=== PATIENT | female | born 1960 | race Caucasian/White ===

== ENCOUNTER 2017-08-10 14:00 | Observation (INO) | payer MEDICARE ==
[~2017-08-10] VITALS: Ht 157.5 cm; Wt 84.4 kg
[2017-08-10 14:41] LABS: CLARITY,URINE SLIGHTLY CLOUDY (Clear); COLOR,URINE YELLOW (Yellow); GLUCOSE, URINE NEGATIVE (Neg); KETONES,URINE TRACE mg/dl (Neg); LEUKOCYTE ESTERASE ,URINE SMALL (Neg); NITRITES, URINE NEGATIVE (Neg); OCCULT BLOOD,URINE LARGE (Neg); PH,URINE 5.5 (4.8-8.0); PROTEIN,URINE TRACE mg/dl (Neg); UROBILINOGEN,URINE 0.2 E.U/dL (0.2-1.0)
[2017-08-10 14:42] LABS: BASOPHILS % (AUTO) 0.1 % (0-1); EOSINOPHILS # (AUTO) 0.3 X10'3 (0-0.9); EOSINOPHILS % (AUTO) 2.3 % (0-6); HEMATOCRIT 43.8 % (35.0-45.0); HEMOGLOBIN 14.8 g/dl (12.0-16.0); LYMPHOCYTES # (AUTO) 2.9 X10'3 (1.1-4.8); LYMPHOCYTES % (AUTO) 19.6 % (21-51); MEAN CORPUSCULAR HEMOGLOBIN 30.6 PG (27.0-31.0); MEAN CORPUSCULAR HGB CONC 33.8 % (33.0-36.5); MEAN CORPUSCULAR VOLUME 90.5 FL (78-98); MEAN PLATELET VOLUME 8.2 FL (7.4-10.4); MONOCYTES % (AUTO) 6.4 % (2-12); NEUTROPHILS # (AUTO) 10.7 X10'3 (1.8-7.7); NEUTROPHILS % (AUTO) 71.6 % (42-75); PLATELET COUNT 284 X10'3 (140-440); RED BLOOD COUNT 4.84 X10'6 (4.20-5.60); RED CELL DISTRIBUTION WIDTH 14.9 % (11.5-14.5)
[2017-08-10 14:43] LABS: UA COLLECTION TYPE CLN CATCH MIDSTREAM
[2017-08-10 14:51] LABS: PROTHROMBIN TIME 10.5 SECONDS (9.0-12.0)
[2017-08-10 14:53] LABS: MUCUS STRANDS MODERATE /LPF (Neg); SQUAMOUS EPITHELIAL CELL,UR MODERATE /LPF (FEW)
[2017-08-10 14:54] LABS: BACTERIA,URINE 2+ /HPF (Neg)
[2017-08-10 14:56] LABS: ALANINE AMINOTRANSFERASE 36 U/L (12-78); ALBUMIN 3.5 G/DL (3.4-5.0); ALBUMIN/GLOBULIN RATIO 0.8 (1.1-1.5); ALKALINE PHOSPHATASE 87 IU/L (46-116); ANION GAP 8 (8-16); ASPARTATE AMINO TRANSFERASE 22 U/L (10-37); BILIRUBIN,TOTAL 0.4 MG/DL (0.1-1.0); BLOOD UREA NITROGEN 16 MG/DL (7-18); BUN/CREATININE RATIO 16.2 (6.6-38.0); CALCIUM 9.4 MG/DL (8.5-10.1); CHLORIDE 103 MMOL/L (99-107); CREATININE 0.99 MG/DL (0.40-0.90); GLUCOSE 96 MG/DL (70-104); POTASSIUM 3.8 MMOL/L (3.5-5.1); SODIUM 141 MMOL/L (135-145); TOTAL CARBON DIOXIDE 30.5 MMOL/L (24-32); TOTAL PROTEIN 7.9 G/DL (6.4-8.2); eGFR 58 ML/MIN
[2017-08-10] MEDS ORDERED: iohexol 300mg/ml 100ml inj. ONE (15:58)
[2017-08-10] MEDS ORDERED: morphine 4 MG/ML inj SYRINge IV ONE ×2 (18:25→19:35)
[2017-08-10] MEDS ORDERED: ondansetron/PF 4mg/2ml inj IV ONE (18:45)
[2017-08-10] MEDS ORDERED: piperacillin/tazo 3.375gm/50ml 50 ML IV SCH (20:00)
[2017-08-10] MEDS ORDERED: NO HOME MEDS (20:04)
[2017-08-10] MEDS ORDERED: acetaminophen 325mg tablet PO PRN (20:30)
[2017-08-10] MEDS ORDERED: ondansetron/PF 4mg/2ml inj IV PRN (20:30)
[2017-08-10] MEDS: normal saline 1000ml 1,000 ML IV SCH (23:08)
[2017-08-10] MEDS: morphine 4 MG/ML inj SYRINge IV PRN (23:52)
[2017-08-11] VITALS (21 sets, daily range): BP systolic 87–170; BP diastolic 52–108
[2017-08-11] MEDS: piperacillin/tazo 3.375gm/50ml 50 ML IV SCH ×4 (01:34→19:18)
[2017-08-11] MEDS: morphine 4 MG/ML inj SYRINge IV PRN ×5 (04:24→23:58)
[2017-08-11 05:38] LABS: BASOPHILS % (AUTO) 0.4 % (0-1); EOSINOPHILS # (AUTO) 0.2 X10'3 (0-0.9); EOSINOPHILS % (AUTO) 2.2 % (0-6); HEMATOCRIT 37.4 % (35.0-45.0); LYMPHOCYTES # (AUTO) 2.6 X10'3 (1.1-4.8); LYMPHOCYTES % (AUTO) 24.6 % (21-51); MEAN CORPUSCULAR HEMOGLOBIN 31.2 PG (27.0-31.0); MEAN CORPUSCULAR HGB CONC 34.7 % (33.0-36.5); MEAN CORPUSCULAR VOLUME 89.9 FL (78-98); MEAN PLATELET VOLUME 8.4 FL (7.4-10.4); MONOCYTES # (AUTO) 0.7 X10'3 (0-0.9); MONOCYTES % (AUTO) 6.8 % (2-12); NEUTROPHILS # (AUTO) 6.9 X10'3 (1.8-7.7); PLATELET COUNT 237 X10'3 (140-440); RED BLOOD COUNT 4.16 X10'6 (4.20-5.60); RED CELL DISTRIBUTION WIDTH 15.3 % (11.5-14.5); WHITE BLOOD COUNT 10.4 X10'3 (4.5-11.0)
[2017-08-11 06:05] LABS: ALBUMIN 2.9 G/DL (3.4-5.0); ANION GAP 7 (8-16); BLOOD UREA NITROGEN 13 MG/DL (7-18); BUN/CREATININE RATIO 15.7 (6.6-38.0); CHLORIDE 107 MMOL/L (99-107); CREATININE 0.83 MG/DL (0.40-0.90); GLUCOSE 99 MG/DL (70-104); POTASSIUM 3.5 MMOL/L (3.5-5.1); SODIUM 143 MMOL/L (135-145); TOTAL CARBON DIOXIDE 28.9 MMOL/L (24-32); eGFR 71 ML/MIN
[2017-08-11] MEDS: normal saline 1000ml 1,000 ML IV SCH ×3 (09:50→19:20)
[2017-08-11] MEDS ORDERED: ceFAZolin 1000mg inj ONE (13:19)
[2017-08-11] MEDS ORDERED: BUPIVAcaine/PF 2.5 mg/ml (0.25%) 30ml vial ONE (13:19)
[2017-08-11] MEDS ORDERED: desflurane 240ml liquid inh. IH ONE (15:25)
[2017-08-11] MEDS ORDERED: fentaNYL/PF 50MCG/1 ML 2ML syringe ONE (15:36)
[2017-08-11] MEDS ORDERED: midazolam 2 mg/2 ml injection ONE (16:02)
[2017-08-11] MEDS ORDERED: rocuronium 10mg/ml inj IV ONE (16:03)
[2017-08-11] MEDS ORDERED: ondansetron/PF 4mg/2ml inj ONE (16:03)
[2017-08-11] MEDS ORDERED: ceFOXitin 1000 MG inj ONE ×2 (16:03)
[2017-08-11] MEDS ORDERED: dexamethasone sod phosphate 4mg/ml inj. ONE (16:03)
[2017-08-11] MEDS ORDERED: LIDOcaine 2% (20mg/ml) 5ml vial ONE (16:03)
[2017-08-11] MEDS ORDERED: propofol inj 20 ML IV ONE (16:03)
[2017-08-11] MEDS ORDERED: neostigmine methylsulfate 1 MG/ML 10ml vial ONE (16:19)
[2017-08-11] MEDS ORDERED: glycopyrrolate 0.2mg/ml inj ONE (16:19)
[2017-08-11] MEDS ORDERED: morphine 4 MG/ML inj SYRINge IV PRN ×2 (16:30)
[2017-08-11] MEDS ORDERED: ondansetron/PF 4mg/2ml inj IV PRN (16:30)
[2017-08-11] MEDS ORDERED: meperidine/PF 50mg/ml syringe IV PRN ×3 (16:30)
[2017-08-11] MEDS ORDERED: proCHLORperazine 10 MG/2 ml inj IV PRN (16:30)
[2017-08-11] MEDS ORDERED: ringers solution, lacted 1,000 ML IV SCH (16:30)
[2017-08-12] VITALS: BP 115/72
[2017-08-12] MEDS: piperacillin/tazo 3.375gm/50ml 50 ML IV SCH ×3 (02:01→14:22)
[2017-08-12 04:30] VITALS: BP 116/67
[2017-08-12] MEDS: normal saline 1000ml 1,000 ML IV SCH (05:56)
[2017-08-12 05:58] LABS: BASOPHILS % (AUTO) 0 % (0-1); EOSINOPHILS # (AUTO) 0.2 X10'3 (0-0.9); EOSINOPHILS % (AUTO) 1.8 % (0-6); HEMATOCRIT 36.6 % (35.0-45.0); HEMOGLOBIN 12.6 g/dl (12.0-16.0); LYMPHOCYTES # (AUTO) 1.4 X10'3 (1.1-4.8); MEAN CORPUSCULAR HEMOGLOBIN 30.8 PG (27.0-31.0); MEAN CORPUSCULAR HGB CONC 34.4 % (33.0-36.5); MEAN CORPUSCULAR VOLUME 89.6 FL (78-98); MEAN PLATELET VOLUME 8.5 FL (7.4-10.4); MONOCYTES # (AUTO) 0.4 X10'3 (0-0.9); MONOCYTES % (AUTO) 3.8 % (2-12); NEUTROPHILS # (AUTO) 9.5 X10'3 (1.8-7.7); NEUTROPHILS % (AUTO) 82.4 % (42-75); PLATELET COUNT 239 X10'3 (140-440); RED BLOOD COUNT 4.09 X10'6 (4.20-5.60); RED CELL DISTRIBUTION WIDTH 14.6 % (11.5-14.5); WHITE BLOOD COUNT 11.5 X10'3 (4.5-11.0)
[2017-08-12] MEDS: HYDROcodone/acetaminophen 5mg/325mg tablet PO PRN ×2 (06:17→10:44)
[2017-08-12 06:39] LABS: ALANINE AMINOTRANSFERASE 59 U/L (12-78); ALBUMIN 2.8 G/DL (3.4-5.0); ALBUMIN/GLOBULIN RATIO 0.7 (1.1-1.5); ALKALINE PHOSPHATASE 99 IU/L (46-116); ANION GAP 13 (8-16); ASPARTATE AMINO TRANSFERASE 58 U/L (10-37); BILIRUBIN,TOTAL 0.4 MG/DL (0.1-1.0); BLOOD UREA NITROGEN 12 MG/DL (7-18); BUN/CREATININE RATIO 14.8 (6.6-38.0); CALCIUM 8.9 MG/DL (8.5-10.1); CHLORIDE 106 MMOL/L (99-107); CREATININE 0.81 MG/DL (0.40-0.90); GLUCOSE 128 MG/DL (70-104); SODIUM 144 MMOL/L (135-145); TOTAL CARBON DIOXIDE 25.3 MMOL/L (24-32); TOTAL PROTEIN 6.6 G/DL (6.4-8.2); eGFR 73 ML/MIN
[2017-08-12 07:00] VITALS: BP 128/78
[2017-08-12] MEDS ORDERED: enoxaparin 40mg/0.4ml syringe SUBCUT SCH (08:00)
[2017-08-12] MEDS ORDERED: pantoprazole 40 MG vial IV SCH (08:00)
[2017-08-12 12:00] VITALS: BP 139/62
[2017-08-12] MEDS ORDERED: ACET-2119 PO (12:01)
[2017-08-12] MEDS ORDERED: HYDR-565 PO (15:36)
== END 2017-08-12 16:53 | disposition home or self-care (01) ==
LOC: ER 14:00 → ED HOLD 20:30 → SUR 3N 08-11 01:07
PROVIDERS: ADMIT Family Medicine; ATTEND Internal Medicine
DX: K81.0 Acute cholecystitis (principal); F17.210 Nicotine dependence, cigarettes, uncomplicated; Z82.5 Family history of asthma and other chronic lower respiratory diseases; Z84.1 Family history of disorders of kidney and ureter
CPT/HCPCS: 36415; 47562; 74177; 76700; 80048; 80053; 81001; 85025; 85610; 87070; 87077; 87088; 87186; 93005; 96365; 96372; 96375; 96376; 99285; C9113; G0378; J0690; J0694; J1100; J1650; J2001; J2250; J2270; J2405; J2543; J2704; J2710; J3010; J3490; J7030; J7120; Q9967; 88304; A7000

== ENCOUNTER 2018-02-03 19:27 | Emergency (ER) | payer MEDICARE ==
[~2018-02-03] VITALS: Ht 157.5 cm; Wt 74.0 kg
[~2018-02-03 19:27] MED LIST: HYDR-565 PO; NO HOME MEDS
[2018-02-03 20:08] LABS: BASOPHILS # (AUTO) 0.1 X10'3 (0-0.2); EOSINOPHILS % (AUTO) 0.3 % (0-6); HEMATOCRIT 44.8 % (35.0-45.0); LYMPHOCYTES # (AUTO) 2.3 X10'3 (1.1-4.8); LYMPHOCYTES % (AUTO) 18.3 % (21-51); MEAN CORPUSCULAR HEMOGLOBIN 30.5 PG (27.0-31.0); MEAN CORPUSCULAR HGB CONC 33.4 % (33.0-36.5); MEAN CORPUSCULAR VOLUME 91.3 FL (78-98); MEAN PLATELET VOLUME 8.2 FL (7.4-10.4); MONOCYTES # (AUTO) 0.6 X10'3 (0-0.9); NEUTROPHILS # (AUTO) 9.7 X10'3 (1.8-7.7); NEUTROPHILS % (AUTO) 75.4 % (42-75); PLATELET COUNT 334 X10'3 (140-440); RED BLOOD COUNT 4.91 X10'6 (4.20-5.60); RED CELL DISTRIBUTION WIDTH 14.6 % (11.5-14.5); WHITE BLOOD COUNT 12.9 X10'3 (4.5-11.0)
[2018-02-03 20:17] LABS: URINE HCG NEGATIVE (NEG)
[2018-02-03 20:20] LABS: INR 1.1 INR; PROTHROMBIN TIME 11.7 SECONDS (9.0-12.0)
[2018-02-03 20:20] LABS: GLUCOSE, URINE NEGATIVE (Neg); KETONES,URINE 40 mg/dl (Neg); LEUKOCYTE ESTERASE ,URINE NEGATIVE (Neg); NITRITES, URINE NEGATIVE (Neg); OCCULT BLOOD,URINE LARGE (Neg); PROTEIN,URINE 30 mg/dl (Neg); UROBILINOGEN,URINE 0.2 E.U/dL (0.2-1.0)
[2018-02-03 20:23] LABS: ALANINE AMINOTRANSFERASE 21 U/L (12-78); ALBUMIN 4.3 G/DL (3.4-5.0); ALBUMIN/GLOBULIN RATIO 1.3 (1.1-1.5); ALKALINE PHOSPHATASE 90 IU/L (46-116); ANION GAP 14 (8-16); ASPARTATE AMINO TRANSFERASE 13 U/L (10-37); BILIRUBIN,TOTAL 0.6 MG/DL (0.1-1.0); BLOOD UREA NITROGEN 16 MG/DL (7-18); BUN/CREATININE RATIO 19.3 (6.6-38.0); CALCIUM 9.5 MG/DL (8.5-10.1); CHLORIDE 101 MMOL/L (99-107); CREATININE 0.83 MG/DL (0.40-0.90); GLUCOSE 111 MG/DL (70-104); POTASSIUM 3.6 MMOL/L (3.5-5.1); SODIUM 140 MMOL/L (135-145); TOTAL CARBON DIOXIDE 25.5 MMOL/L (24-32); TOTAL PROTEIN 7.6 G/DL (6.4-8.2); eGFR 71 ML/MIN
[2018-02-03 20:30] LABS: CLARITY,URINE CLOUDY (Clear); COLOR,URINE DARK YELLOW (Yellow); UA COLLECTION TYPE CLN CATCH MIDSTREAM
[2018-02-03 20:35] LABS: RBC,URINE 50-100 /HPF (0-2); WBC,URINE 0-4 /HPF (0-4)
[2018-02-03 20:36] LABS: BACTERIA,URINE FEW /HPF (Neg)
[2018-02-03 20:37] LABS: FINE GRANULAR CAST 0-3 /LPF (NEGATIVE); MUCUS STRANDS MANY /LPF (Neg); SQUAMOUS EPITHELIAL CELL,UR MODERATE /LPF (FEW)
[2018-02-03 21:15] VITALS: BP 146/62
[2018-02-03] MEDS ORDERED: morphine 4 MG/ML inj SYRINge IV ONE (21:20)
[2018-02-03] MEDS ORDERED: ondansetron/PF 4mg/2ml inj IV ONE ×2 (21:20→22:05)
[2018-02-03] MEDS ORDERED: CIPR-259 PO (22:06)
[2018-02-03] MEDS ORDERED: ONDA4TAB9 PO (22:06)
[2018-02-03] MEDS ORDERED: TRAM50TA2 PO (22:14)
== END 2018-02-03 22:24 | disposition home or self-care (01) ==
LOC: ER 19:28
DX: R31.9 Hematuria, unspecified (principal); R10.30 Lower abdominal pain, unspecified; F17.200 Nicotine dependence, unspecified, uncomplicated; Z90.49 Acquired absence of other specified parts of digestive tract; Z88.2 Allergy status to sulfonamides; Z88.6 Allergy status to analgesic agent; Z79.2 Long term (current) use of antibiotics; Z79.899 Other long term (current) drug therapy
CPT/HCPCS: 36415; 74176; 80053; 81001; 81025; 85025; 85610; 96374; 96375; 96376; 99285; J2270; J2405

== ENCOUNTER 2024-02-13 11:01 | Emergency (ER) | payer MEDICARE ==
[~2024-02-13] VITALS: Ht 157.5 cm; Wt 90.0 kg
[~2024-02-13 11:01] MED LIST changes: +ACET-3414 PO; +HYDR-3965 PO; -HYDR-565 PO; +IXEK80AU2 SUBCUT; -NO HOME MEDS
[2024-02-13] MEDS: HYDROcodone/acetaminophen 10/325mg tab PO ONE (11:55)
[2024-02-13 12:11] VITALS: BP 132/88; PULSE 83; RESP 16; TEMP 98.7; O2SAT 99
== END 2024-02-13 12:12 | disposition home or self-care (01) ==
LOC: ER 11:02
DX: M25.561 Pain in right knee (principal); Z88.6 Allergy status to analgesic agent; Z79.899 Other long term (current) drug therapy; Z79.1 Long term (current) use of non-steroidal anti-inflammatories (NSAID); Z90.49 Acquired absence of other specified parts of digestive tract; Z88.2 Allergy status to sulfonamides; Z96.651 Presence of right artificial knee joint
CPT/HCPCS: 93971; 99284

== ENCOUNTER 2024-10-26 12:30 | Outpatient (CLI) | payer MEDICARE ==
[~2024-10-26 12:30] MED LIST changes: -HYDR-3965 PO
--- NOTE | 2024-10-26 19:07 | RADIOLOGY REPORT ---
Procedure: CT CT LOWER EXTREMITY 10/26/2024 12:42 PM Indication: OA L KNEE Comparison Study: None Technique: Axial CT images of the left knee were obtained and reformatted in coronal and sagittal caroline yanely. All CT scans at this medical facility are performed using dose modulation techniques as appropri ate to a performed exam including the following: Automated exposure control was utilized; adjustment of the MA and/or KV according to patient size; and use of iterative reconstruction technique. CT Dose : CTDI volume is 38.1 mGy. Dose-length product is 1335.52 mGy*cm FINDINGS: Bones: Tricompartment osteoarthritis with tricompartment osteophyte formation, moderate to marked med ial and mild lateral compartment joint space narrowing. There is slight lateral subluxation of the p roximal tibia relative to the distal femur likely degenerative. There is no acute fracture. Soft tissues: The muscle bundles about the left lower extremity are intact. There is a moderate left knee joint effusion. IMPRESSION: 1. Tricompartment osteoarthritis of the left knee with moderate to marked medial and mild lateral com partment joint space narrowing and tricompartment osteophyte formation. 2. No acute fracture. 3. Moderate left knee joint effusion.
== END 2024-10-26 23:59 | disposition home or self-care (01) ==
LOC: RAD 12:30
PROVIDERS: ATTEND Orthopaedic Surgery
DX: S83.122A Posterior subluxation of proximal end of tibia, left knee, initial encounter (principal); M17.12 Unilateral primary osteoarthritis, left knee; M25.462 Effusion, left knee; X58.XXXA Exposure to other specified factors, initial encounter; Y93.89 Activity, other specified; Y92.89 Other specified places as the place of occurrence of the external cause; Y99.8 Other external cause status
CPT/HCPCS: 73700

== ENCOUNTER 2025-01-20 07:54 | Emergency (ER) | payer MEDICARE ==
[~2025-01-20] VITALS: Ht 157.5 cm; Wt 100.0 kg
[~2025-01-20 07:54] MED LIST changes: -ACET-3414 PO; +ASPI-611 PO; +GABA-530 PO; +PANT40TA54 PO; +SENN-362 PO
--- NOTE | 2025-01-20 08:36 | Physician Documentation ---
History of Present Illness ~ Chief Complaint: Post-operative complication Stated Complaint: OPEN WOUND AFTER SURGERY Time Seen by MD: 08:35 Primary Medical Doctor: Dr. Yates HPI 64-year-old female presenting for a wound check She tells me that about 4 days ago she had her left knee replaced by Dr. Ramos. She has been doing well until last night. She checked under the bandage, noticed that there was some clear yellow drainage from the wound as well as a small amount of bleeding. One of the carlos seemed loose. Otherwise she has been doing well. No fevers or chills or other related symptoms. She has a follow up appointment in about 10 days Rita cuellar 5 years: Yes (2014) Medication Reconciliation Allergies: Coded Allergies: NSAIDS (Non-Steroidal Anti-Inflamma (Verified Allergy, Unknown, ULCERS, 01/20/25) Sulfa (Sulfonamide Antibiotics) (Verified Allergy, Unknown, VOMIT, 01/20/25) ibuprofen (Verified Allergy, Unknown, 01/20/25) Scheduled Aspirin (Aspir 81), 2 TAB PO DAILY Gabapentin (Gabapentin), 1 CAP PO Q8H Ixekizumab (Taltz Autoinjector), 80 MG SUBCUT Q MONTH, (Reported) Pantoprazole Sodium (Pantoprazole Sodium), 40 MG PO DAILY Sennosides (Senna Lax), 17.2 MG PO HS Past Medical History Past Medical History: No Pertinent History Past Surgical History: cholecystectomy Other Past Surgical History: Breast reduction Patient History: Bladder cancer Cancer of the kidney Alcohol Use: Occasionally Drug Use: none Lives with: Family Lives In: Home Occupation: employed Review of Systems Constitutional: Denies: fever Integumentary: Reports: wound(s) Physical Exam Vital Signs: Temperature: 98.3, Source: Oral, Heart Rate: 115, Respiratory Rate: 16, BP: 120/87, Pulse Oximetry: 98, Weight: 100.000 Oxygen Flow Rate: 0 Physical Exam General: This is a pleasant and well-appearing middle-aged woman sitting calmly in bed Heart: Regular rate, normal-appearing peripheral perfusion including to the left leg Lungs: normal work of breathing, normal oxygen saturation on room air Extremities: Left lower extremity: The patient has a postsurgical wound over the anterior left knee, with carlos in place. There is no significant dehiscence. There was no significant surrounding erythema, no purulent drainage. There are a few spots of clear blood-tinged drainage between carlos at the lower margins. Neuro: Alert and oriented Psychiatric: Appears mildly anxious but is cooperative with exam Progress Results/Orders Results/Orders Vital Signs 01/20/25 01/20/25 01/20/25 07:57 08:39 08:46 Temp 98.3 98.3 Pulse 115 50 Resp 16 16 18 B/P (MAP) 120/87 118/79 (92) Pulse Ox 98 98 O2 Flow Rate 0 0 Medical Decision Making Additional Comment The patient presents with concerns for postoperative wound from a knee replacement. On my exam there was no evidence of infection, dehiscence, or other serious complication. There is a small amount of serous/bloody drainage. One staple with the bottom was loose, and was removed. Steri-Strips were placed over the area of drainage. The wound was cleaned and rebandaged. I do not feel that she requires any further workup or intervention at this time. She will contact the orthopedic clinic tomorrow to arrange close follow up for recheck of her wound. Return precautions given. Departure Time of Disposition: 08:50 Disposition: 01 HOME / SELF CARE / HOMELESS Impression: Primary Impression: Visit for wound check Condition: Stable Discharge Instructions: Total Knee Replacement, Care After Referrals: NO PRIMARY CARE PROVIDER (PCP) Education Educated: Patient Educated regarding: diagnosis, treatment, need for follow up Signature Scribe Signature: cary Attestation: SHAVON Gutierrez MD Jan 20, 2025 08:36
[2025-01-20 08:46] VITALS: TEMP 98.3
[2025-01-20 09:17] VITALS: BP 136/80; PULSE 78; RESP 18; O2SAT 99
== END 2025-01-20 09:19 | disposition home or self-care (01) ==
LOC: ER 07:54
DX: S81.012D Laceration without foreign body, left knee, subsequent encounter (principal); Z88.2 Allergy status to sulfonamides; Z88.6 Allergy status to analgesic agent; Z88.8 Allergy status to other drugs, medicaments and biological substances; Z90.49 Acquired absence of other specified parts of digestive tract; Z79.82 Long term (current) use of aspirin; X58.XXXD Exposure to other specified factors, subsequent encounter
CPT/HCPCS: 99281; A6402; A6449